=== PATIENT | female | born 1955 | race Asian ===

== ENCOUNTER 2021-11-11 15:46 | Emergency (ER) | payer MEDICARE ==
[~2021-11-11] VITALS: Ht 160 cm; Wt 53.2 kg
[2021-11-11] MEDS ORDERED: AMIO200T68 PO (16:06)
[2021-11-11] MEDS ORDERED: METO25 PO (16:06)
[2021-11-11] MEDS ORDERED: WARF1TAB9 PO (16:06)
[2021-11-11] MEDS ORDERED: WARF2.5T38 PO (16:09)
[2021-11-11] MEDS ORDERED: METO-408 PO (16:09)
[2021-11-11 17:18] LABS: EOSINOPHILS % (AUTO) 3.6 % (1.0-6.0); HEMATOCRIT 34.6 % (36-46); HEMOGLOBIN 11.4 g/dL (12.0-16.0); LYMPHOCYTES % (AUTO) 18.4 % (22.0-44.0); MEAN CORPUSCULAR HEMOGLOBIN 29.2 pg (26.0-34.0); MEAN CORPUSCULAR HGB CONC 32.9 G/dL (31.0-37.0); MEAN CORPUSCULAR VOLUME 89 fL (80-100); MONOCYTES # (AUTO) 0.6 K/uL (0.1-1.0); MONOCYTES % (AUTO) 10.5 % (2.0-9.0); NEUTROPHILS # (AUTO) 3.8 K/uL (1.8-7.7); NEUTROPHILS % (AUTO) 66.5 % (40.0-70.0); PLATELET COUNT (AUTO) 229 K/uL (150-450); RED BLOOD CELL COUNT(AUTO) 3.91 MIL/uL (4.00-5.20); RED CELL DISTRIBUTION WIDTH 18.4 % (11.5-14.5)
[2021-11-11 17:26] LABS: CALCIUM, TOTAL 8.7 mg/dL (8.8-10.5); CREATININE 1.18 mg/dL (0.60-1.30); POTASSIUM 3.6 mmol/L (3.5-5.1)
[2021-11-11 17:33] LABS: ALBUMIN 3.5 g/dL (3.4-5.0); BILIRUBIN,TOTAL 0.8 mg/dL (0.1-1.0); TOTAL PROTEIN, SERUM 7.5 g/dL (6.4-8.2)
[2021-11-11] MEDS ORDERED: AmLODIPine BESYLATE 5 MG TABLET PO ONE (19:15)
[2021-11-11] MEDS ORDERED: METOPROLOL SUCCINATE 50 MG ER TABLET PO ONE (19:15)
[2021-11-11] MEDS ORDERED: CloNIDine HCL 0.1 MG TABLET PO ONE (21:00)
[2021-11-11 22:00] VITALS: BP 165/106
[2021-11-11] MEDS ORDERED: FURO-152 PO (22:50)
[2021-11-11] MEDS ORDERED: POTA8TAB71 PO (22:50)
== END 2021-11-11 23:11 | disposition home or self-care (01) ==
LOC: EMS 16:03
DX: I10 Essential (primary) hypertension (principal); I11.0 Hypertensive heart disease with heart failure; I50.9 Heart failure, unspecified; I42.9 Cardiomyopathy, unspecified; Z95.2 Presence of prosthetic heart valve; Z86.79 Personal history of other diseases of the circulatory system; Z98.890 Other specified postprocedural states; Z91.040 Latex allergy status
CPT/HCPCS: 71045; 80053; 83880; 84484; 85025; 93005; 99285; 36415-L1; 36415-TC